=== PATIENT | female | born 1965 | race American Indian/Alaskan Native ===

== ENCOUNTER 2025-02-01 20:07 | Emergency (ER) | payer MEDICAID, OTHER | END 2025-02-01 21:30 | disposition home or self-care (01) | LOC: ERS 20:07 | DX: S39.012A Strain of muscle, fascia and tendon of lower back, initial encounter (principal); V89.2XXA Person injured in unspecified motor-vehicle accident, traffic, initial encounter | CPT/HCPCS: 72100; 96372; 99284 ==